=== PATIENT | female | born 1970 | race Caucasian/White ===

== ENCOUNTER 2020-05-17 09:05 | Emergency (ER) | payer MEDICAID ==
[~2020-05-17] VITALS: Ht 152.4 cm; Wt 66.7 kg
[2020-05-17 09:17] VITALS: BP 128/80
--- NOTE | 2020-05-17 09:20 | NUR ---
PT AMBULATED TO BED 05
--- NOTE | 2020-05-17 09:25 | NUR ---
49 Y/O FEMALE FROM HOME C/O EPIGASTRIC PAIN S/P EATING DINNER LAST NIGHT. STATES 9/10 BURNING PAIN TO EPIGASTRIC REGION. STATES ONE EPISODE OF VOMITING THIS MORNING AROUND 0600 AND MILD DIARRHEA. DENIES NAUSEA. AFEBRILE UPON ARRIVAL. BOWEL SOUNDS PRESENT X 4 QUAD. RR EVEN AND UNLABORED. AWAKE AND ALERT. VSS MEDHX: DENIES ALLERGIES: NKA
[2020-05-17] MEDS ORDERED: NACL 0.9% 1,000 ML IV ONE (09:45)
--- NOTE | 2020-05-17 09:50 | NUR ---
18G IV PLACED TO PTS LT AC, BLOOD DRAWN AT THIS TIME
[2020-05-17 10:06] LABS: BASOPHILS # (AUTO) 0.1 K/uL (0.00-0.22); BASOPHILS % (AUTO) 0.5 % (0.0-2.0); EOSINOPHILS % (AUTO) 0.3 % (0.0-4.0); HEMATOCRIT 38.6 % (36-48); HEMOGLOBIN 12.9 g/dL (12.0-16.0); LYMPHOCYTES # (AUTO) 1.4 K/uL (2.5-16.5); LYMPHOCYTES % (AUTO) 12.2 % (20.5-51.1); MEAN CORPUSCULAR HEMOGLOBIN 30 pg (27-31); MEAN CORPUSCULAR HGB CONC 34 g/dL (33-37); MEAN CORPUSCULAR VOLUME 89.1 fL (80-94); MONOCYTES # (AUTO) 0.4 K/uL (0.8-1.0); MONOCYTES % (AUTO) 3.3 % (1.7-9.3); NEUTROPHILS # (AUTO) 9.8 K/uL (1.8-7.7); NEUTROPHILS % (AUTO) 83.7 % (42.2-75.2); PLATELET COUNT (AUTO) 244 K/uL (140-450); RED BLOOD CELL COUNT(AUTO) 4.33 MIL/uL (4.20-5.40); RED CELL DISTRIBUTION WIDTH 13.1 % (11.6-13.7); WHITE BLOOD COUNT (AUTO) 11.7 K/uL (4.8-10.8)
[2020-05-17 10:23] LABS: ANION GAP 12.8 (8-16); CARBON DIOXIDE 26.7 mmol/L (21-32); CREATININE 0.8 mg/dL (0.6-1.3); POTASSIUM 3.5 mmol/L (3.5-5.1)
--- NOTE | 2020-05-17 10:23 | NUR ---
ULTRASOUND AT BEDSIDE
[2020-05-17 10:29] LABS: ALBUMIN 3.7 g/dL (3.4-5.0); TOTAL BILIRUBIN 0.3 mg/dL (0.0-1.0)
--- NOTE | 2020-05-17 11:01 | NUR ---
PT STATES SHE IS FEELING BETTER, 4/10 TOLERABLE PAIN. VSS
[2020-05-17 11:20] VITALS: BP 128/80
--- NOTE | 2020-05-17 11:21 | NUR ---
Patient discharged with v/s stable. Written and verbal after care instructions given and explained. Patient alert, oriented and verbalized understanding of instructions. Ambulatory with steady gait. All questions addressed prior to discharge. ID band removed. Patient advised to follow up with PMD. Rx of ZOFRAN 4MG given. Patient educated on indication of medication including possible reaction and side effects. Opportunity to ask questions provided and answered.
== END 2020-05-17 11:21 | disposition home or self-care (01) ==
LOC: MED 09:05
DX: K52.9 Noninfective gastroenteritis and colitis, unspecified (principal); K80.50 Calculus of bile duct without cholangitis or cholecystitis without obstruction
CPT/HCPCS: 36415; 76705; 80053; 83690; 85025; 96360; 99284; Q0092; J7030

== ENCOUNTER 2020-05-28 22:01 | Emergency (ER) | payer MEDICAID ==
[~2020-05-28] VITALS: Ht 152.4 cm; Wt 66.2 kg
[2020-05-28 22:16] VITALS: BP 154/88
--- NOTE | 2020-05-28 22:23 | NUR ---
PT AMBULATED TO LOBBY WITH STEADY GAIT.
--- NOTE | 2020-05-28 23:20 | NUR ---
PT AMBULATED TO BED 1 W/ STEADY GAIT.
--- NOTE | 2020-05-28 23:20 | NUR ---
49 Y/O FEMALE PRESENTED TO ED C/O ABD PAIN X 2 WEEKS. PT STATES PAIN IS EPIGASTRIC NON RADIATING. PT STATES LAST BM WAS TODAY. DENIES N/V/D/FEVER. PT STATES HAS HX OF GALL STONES. PT STATES SHE ATE FOOD AROUND 1500 TODAY AND THE PAIN STARTED AROUND 2100 THIS EVENING. PT RESTING IN BED, LOCKED AND IN LOWEST POSITION, HOB ELEVATED, SIDE RAIL X1. RR EVEN AND UNLABORED, VSS. PMH: GALL STONES NKA
[2020-05-29] MEDS ORDERED: SUCRALFATE 1 GM TAB PO SCH (00:10)
[2020-05-29] MEDS ORDERED: FAMOTIDINE 20 MG TAB PO ONE (00:10)
[2020-05-29] MEDS ORDERED: ALUMINUM HYD/MAG/SIMETHICONE 30 ML UDC PO ONE (00:10)
--- NOTE | 2020-05-29 00:37 | NUR ---
PT RESTING IN BED , LOCKED AND IN LOWEST POSITION ,HOB ELEVATED, SIDE RAIL X1. RR EVEN AND UNLABORED, VSS.
--- NOTE | 2020-05-29 01:24 | NUR ---
COVERING FOR PRIMARY RN FOR LUNCH RELIEF -- RETURNED FROM CT. REATTACHED TO CARDIAC MONITORING. REMAINS IN STABLE CONDITION.
--- NOTE | 2020-05-29 02:15 | NUR ---
PT RESTING IN BED , LOCKED AND IN LOWEST POSITION, HOB ELEVATED, SIDE RAIL X1. VISIBLE RISE AND FALL OF CHEST, RR EVEN AND UNLABORED. VSS.
--- NOTE | 2020-05-29 02:37 | NUR ---
ERMD AT BEDSIDE FOR RE EVALUATION
[2020-05-29 02:51] VITALS: BP 118/58
--- NOTE | 2020-05-29 02:51 | NUR ---
Patient discharged with v/s stable. Written and verbal after care instructions given and explained. Patient verbalized understanding. Ambulatory with steady gait. All questions addressed prior to discharge. Advised to follow up with PMD.
== END 2020-05-29 02:51 | disposition home or self-care (01) ==
LOC: MED 22:01
DX: R10.9 Unspecified abdominal pain (principal); R07.0 Pain in throat
CPT/HCPCS: 99284

== ENCOUNTER 2022-02-15 08:26 | Emergency (ER) | payer MEDICAID ==
[~2022-02-15] VITALS: Ht 152.4 cm; Wt 71.3 kg
[2022-02-15 08:43] VITALS: BP 119/76
--- NOTE | 2022-02-15 08:47 | NUR ---
PT AMB TO BED 12.
[2022-02-15] MEDS ORDERED: KETOROLAC 30 MG/ML VIAL IVP ONE (09:35)
[2022-02-15] MEDS ORDERED: MORPHINE SULFATE 4 MG/ML SYR IVP ONE (09:35)
[2022-02-15] MEDS ORDERED: NACL 0.9% 1,000 ML IV ONE (09:35)
[2022-02-15 10:11] LABS: APPEARANCE,URINE SL CLOUDY (CLEAR); BILIRUBIN,URINE NEGATIVE (NEGATIVE); BLOOD, URINE NEGATIVE (NEGATIVE); COLOR,URINE YELLOW (YELLOW); LEUKOCYTE ESTERASE ,URINE NEGATIVE (NEGATIVE); NITRITE, URINE NEGATIVE (NEGATIVE); UGLUCOSE NEGATIVE (NEGATIVE)
[2022-02-15 10:19] LABS: BASOPHILS % (AUTO) 0.6 % (0.0-2.0); EOSINOPHILS # (AUTO) 0.2 K/uL (0-0.4); EOSINOPHILS % (AUTO) 3.6 % (0.0-4.0); HEMATOCRIT 36.8 % (36-48); HEMOGLOBIN 12.3 g/dL (12.0-16.0); LYMPHOCYTES # (AUTO) 2.2 K/uL (2.5-16.5); MEAN CORPUSCULAR HEMOGLOBIN 30 pg (27-31); MEAN CORPUSCULAR HGB CONC 33 g/dL (33-37); MEAN CORPUSCULAR VOLUME 88.3 fL (80-94); MONOCYTES # (AUTO) 0.4 K/uL (0.8-1.0); NEUTROPHILS # (AUTO) 2.5 K/uL (1.8-7.7); NEUTROPHILS % (AUTO) 46.8 % (42.2-75.2); PLATELET COUNT (AUTO) 199 K/uL (140-450); RED BLOOD CELL COUNT(AUTO) 4.16 MIL/uL (4.20-5.40); RED CELL DISTRIBUTION WIDTH 13.8 % (11.6-13.7); WHITE BLOOD COUNT (AUTO) 5.3 K/uL (4.8-10.8)
[2022-02-15 10:37] LABS: ALBUMIN 3.3 g/dL (3.4-5.0); ANION GAP 12.5 (8-16); CARBON DIOXIDE 24.1 mmol/L (21-32); CREATININE 0.6 mg/dL (0.6-1.3); POTASSIUM 3.6 mmol/L (3.5-5.1); TOTAL BILIRUBIN 0.2 mg/dL (0.0-1.0)
--- NOTE | 2022-02-15 10:53 | NUR ---
TRAN WALKED TO LAB AND RECIEVED BY [employer].
[2022-02-15] MEDS ORDERED: ACET-2619 PO (12:17)
[2022-02-15 12:42] VITALS: BP 123/72
--- NOTE | 2022-02-15 12:42 | NUR ---
Patient discharged with v/s stable. Written and verbal after care instructions given FOR ABDOMINAL PAIN and explained. Patient alert, oriented and verbalized understanding of instructions. Ambulatory with steady gait. All questions addressed prior to discharge. ID band removed. Patient advised to follow up with PMD. Rx of TYNENOL given. Patient educated on indication of medication including possible reaction and side effects. Opportunity to ask questions provided and answered.
== END 2022-02-15 12:42 | disposition home or self-care (01) ==
LOC: MED 08:26
DX: R10.31 Right lower quadrant pain (principal); Z20.822 Contact with and (suspected) exposure to COVID-19
CPT/HCPCS: 36415; 74176; 80053; 81003; 81025; 83605; 83690; 85025; 87426; 96361; 96374; 96375; 99284; J1885; J2270; J7030